=== PATIENT | female | born 1995 | race Caucasian/White ===

== ENCOUNTER 2017-11-17 19:05 | Emergency (ER) | payer SELFPAY ==
[~2017-11-17] VITALS: Ht 157.5 cm; Wt 53.1 kg
[2017-11-17 19:28] VITALS: BP 112/68
--- NOTE | 2017-11-17 19:31 | NUR ---
TO LOBBY A/W BED, KEELEY MOJICA NOTED
--- NOTE | 2017-11-17 22:04 | NUR ---
PT TAKEN TO BED 1
--- NOTE | 2017-11-17 22:04 | NUR ---
PT PRESENTS TO ED WITH STERNAL CHEST PAIN X1 DAY. PT STATES DULL CONTINUOUS PAIN WITH SOB. PT STATES N/V X1 HR. HR NSR AT 89, LUNGS CLEAR BILAT WITH O2SAT OF 100%RA. VSS. A&OX4. POSITIONED IN BED WITH VSS. ER MD AWARE. CONTINUE TO MONITOR.
[2017-11-17] MEDS ORDERED: FAMOTIDINE 20 MG TAB PO ONE (23:40)
[2017-11-17] MEDS ORDERED: ALUMINUM HYD/MAG/SIMETHICONE 30 ML, DICYCLOMINE HCL LIQUID 20 MG, LIDOCAINE VISCOUS 2% ... PO ONE ×3 (23:40)
[2017-11-17] MEDS ORDERED: ONDANSETRON 4 MG ODT PO ONE (23:40)
--- NOTE | 2017-11-18 00:06 | NUR ---
BLOOD SENT TO LAB.
[2017-11-18 00:14] LABS: BASOPHILS % (AUTO) 0.2 % (0.0-2.0); EOSINOPHILS % (AUTO) 0.1 % (0.0-4.0); HEMATOCRIT 32.7 % (36-48); HEMOGLOBIN 10.6 g/dL (12.0-16.0); LYMPHOCYTES # (AUTO) 0.5 K/uL (2.5-16.5); LYMPHOCYTES % (AUTO) 7.7 % (20.5-51.1); MEAN CORPUSCULAR HEMOGLOBIN 25 pg (27-31); MEAN CORPUSCULAR HGB CONC 32 g/dL (33-37); MONOCYTES # (AUTO) 0.3 K/uL (0.8-1.0); MONOCYTES % (AUTO) 4.3 % (1.7-9.3); NEUTROPHILS % (AUTO) 87.7 % (42.2-75.2); PLATELET COUNT (AUTO) 200 K/uL (140-450); RED BLOOD CELL COUNT(AUTO) 4.24 MIL/uL (4.20-5.40); RED CELL DISTRIBUTION WIDTH 16.4 % (11.6-13.7); WHITE BLOOD COUNT (AUTO) 6.9 K/uL (4.8-10.8)
[2017-11-18 00:15] LABS: APPEARANCE,URINE CLEAR (CLEAR); BILIRUBIN,URINE 2+ (NEGATIVE); BLOOD, URINE NEGATIVE (NEGATIVE); COLOR,URINE YELLOW (YELLOW); LEUKOCYTE ESTERASE ,URINE TRACE (NEGATIVE); NITRITE, URINE NEGATIVE (NEGATIVE); UGLUCOSE NEGATIVE (NEGATIVE)
[2017-11-18 00:17] LABS: ANION GAP 10.8 (8-16); CARBON DIOXIDE 24.2 mmol/L (21-32); CREATININE 0.3 mg/dL (0.6-1.3)
[2017-11-18 00:22] LABS: ALBUMIN 3.7 g/dL (3.4-5.0); TOTAL BILIRUBIN 1.3 mg/dL (0.0-1.0)
[2017-11-18 00:25] VITALS: BP 101/61
[2017-11-18 00:25] LABS: RBC,URINE 0-5 (RARE) /HPF (0-5); WBC,URINE 0-5 (RARE) /HPF (0-5)
--- NOTE | 2017-11-18 00:25 | NUR ---
Patient discharged with v/s stable with no pain 0/10. Written and verbal after care instructions given and explained. Patient alert, oriented and verbalized understanding of instructions. Ambulatory with steady gait. All questions addressed prior to discharge. ID band removed. Patient advised to follow up with PMD. Rx of Equiline Ferrous Sulfate, Reglan, Pepcid, and Tramadol given. Patient educated on indication of medication including possible reaction and side effects. Opportunity to ask questions provided and answered.
== END 2017-11-18 00:25 | disposition home or self-care (01) ==
LOC: MED 19:05
DX: K52.9 Noninfective gastroenteritis and colitis, unspecified (principal); D50.9 Iron deficiency anemia, unspecified
CPT/HCPCS: 36415; 80053; 81001; 83540; 83690; 85025; 99284; S0119

== ENCOUNTER 2018-09-26 03:11 | Emergency (ER) | payer MEDICAID ==
[~2018-09-26] VITALS: Ht 157.5 cm; Wt 54.4 kg
[2018-09-26 03:34] VITALS: BP 102/63
--- NOTE | 2018-09-26 03:34 | NUR ---
TO BED # 08 AMBULATORY. CAME IN WITH C/O EPIGASTRIC PAIN WITH NAUSEA , VOMITING, HEADACHE FOR 3 DAYS.
--- NOTE | 2018-09-26 03:59 | NUR ---
SEEN AND EXAMINED BY ASIF WITH ORDERS AND CARRIED OUT.
[2018-09-26 04:28] LABS: APPEARANCE,URINE CLOUDY (CLEAR); BILIRUBIN,URINE 1+ (NEGATIVE); BLOOD, URINE 3+ (NEGATIVE); COLOR,URINE YELLOW (YELLOW); LEUKOCYTE ESTERASE ,URINE NEGATIVE (NEGATIVE); NITRITE, URINE NEGATIVE (NEGATIVE); PH,URINE 5.5 (5.0-9.0); UGLUCOSE NEGATIVE (NEGATIVE)
--- NOTE | 2018-09-26 04:30 | NUR ---
Dr. Sorensen examining patient.
[2018-09-26] MEDS ORDERED: LIDOCAINE VISCOUS 2% 20 ML UDC PO ONE (04:40)
[2018-09-26] MEDS ORDERED: DICYCLOMINE 20 MG/2 ML VIAL IM ONE (04:40)
[2018-09-26] MEDS ORDERED: FAMOTIDINE 20 MG/2 ML VIAL IVP ONE (04:40)
[2018-09-26] MEDS ORDERED: ALUMINUM HYD/MAG/SIMETHICONE 30 ML UDC PO ONE (04:40)
[2018-09-26 04:46] LABS: RBC,URINE TOO NUMEROUS TO COUN /HPF (0-5)
[2018-09-26 04:48] LABS: CALCIUM OXALATE CRYSTALS,UR 0-10 /HPF (None Seen)
[2018-09-26 04:51] LABS: BASOPHILS # (AUTO) 0.1 K/uL (0.00-0.22); BASOPHILS % (AUTO) 0.6 % (0.0-2.0); EOSINOPHILS # (AUTO) 0.1 K/uL (0-0.4); EOSINOPHILS % (AUTO) 1.1 % (0.0-4.0); HEMATOCRIT 28.9 % (36-48); HEMOGLOBIN 9.4 g/dL (12.0-16.0); LYMPHOCYTES # (AUTO) 1.1 K/uL (2.5-16.5); LYMPHOCYTES % (AUTO) 10.8 % (20.5-51.1); MEAN CORPUSCULAR HEMOGLOBIN 24 pg (27-31); MEAN CORPUSCULAR HGB CONC 32 g/dL (33-37); MEAN CORPUSCULAR VOLUME 75.2 fL (80-94); MONOCYTES # (AUTO) 0.5 K/uL (0.8-1.0); MONOCYTES % (AUTO) 5.1 % (1.7-9.3); NEUTROPHILS # (AUTO) 8.1 K/uL (1.8-7.7); NEUTROPHILS % (AUTO) 82.4 % (42.2-75.2); PLATELET COUNT (AUTO) 240 K/uL (140-450); RED BLOOD CELL COUNT(AUTO) 3.85 MIL/uL (4.20-5.40); RED CELL DISTRIBUTION WIDTH 15.5 % (11.6-13.7); WHITE BLOOD COUNT (AUTO) 9.9 K/uL (4.8-10.8)
[2018-09-26 05:05] LABS: ANION GAP 14.1 (8-16); CARBON DIOXIDE 25.5 mmol/L (21-32); CREATININE 0.6 mg/dL (0.6-1.3); POTASSIUM 3.6 mmol/L (3.5-5.1)
[2018-09-26 05:12] LABS: ALBUMIN 3.9 g/dL (3.4-5.0); TOTAL BILIRUBIN 0.6 mg/dL (0.0-1.0)
--- NOTE | 2018-09-26 06:36 | NUR ---
Ultrasound at bedside.
--- NOTE | 2018-09-26 07:00 | NUR ---
STILL A/W FOR RESULTS FOR DISPOSITION.
--- NOTE | 2018-09-26 07:24 | NUR ---
REPORT GIVEN TO MONA JOHNSON CHARGE
[2018-09-26 09:21] VITALS: BP 102/63
--- NOTE | 2018-09-26 09:21 | NUR ---
IV removed, catheter intact and site benign. Applied folded 4x4 gauze and tape to stop bleeding.
--- NOTE | 2018-09-26 09:22 | NUR ---
Patient discharged with v/s stable. Written and verbal after care instructions given and explained. Patient alert, oriented and verbalized understanding of instructions. Ambulatory with steady gait. All questions addressed prior to discharge. ID band removed. Patient advised to follow up with PMD. Rx of Motrin, [place] and zofran given. Patient educated on indication of medication including possible reaction and side effects. Opportunity to ask questions provided and answered.
== END 2018-09-26 09:22 | disposition home or self-care (01) ==
LOC: MED 03:11
DX: K80.80 Other cholelithiasis without obstruction (principal)
CPT/HCPCS: 36415; 76705; 80053; 81001; 81025; 83690; 85025; 87086; 87186; 96372; 96374; 99284; J0500; J3490; Q0092

== ENCOUNTER 2019-08-28 20:59 | Emergency (ER) | payer MEDICAID ==
[~2019-08-28] VITALS: Ht 157.5 cm; Wt 59.9 kg
[2019-08-28 21:26] VITALS: BP 97/60
--- NOTE | 2019-08-28 21:34 | NUR ---
PT TAKEN TO BED 11
--- NOTE | 2019-08-28 21:59 | NUR ---
24F PRESENTS TO ED WITH C/O RUQ, LUQ ABDOMINAL 10/23 THAT IS RADIATING TO LOWER BACK THAT STARTED X 3 DAYS. PT REPORTS THEY WERE SEEN HERE IN [facility] X2 MONTHS FOR THE SAME THING. ABDOMEN SOFT AND NONTENDER. BOWEL SOUNDS NORMOACTIVE. DENIES VOMITING OR DIARRHEA BUT + FOR NAUSEA. ERMD MADE AWARE. PMHX: DENIES RX: DENIES NKA
--- NOTE | 2019-08-28 22:15 | NUR ---
Dr. Rodriguez examining patient.
--- NOTE | 2019-08-28 22:17 | NUR ---
ASIF PIPER AT BEDSIDE.
[2019-08-28] MEDS ORDERED: ONDANSETRON 4 MG ODT PO ONE (22:20)
[2019-08-28] MEDS ORDERED: KETOROLAC 60 MG/2 ML VIAL IM ONE (22:20)
[2019-08-28 23:09] VITALS: BP 97/60
--- NOTE | 2019-08-28 23:09 | NUR ---
Patient discharged with v/s stable. Written and verbal after care instructions given and explained. Patient alert, oriented and verbalized understanding of instructions. Ambulatory with steady gait. All questions addressed prior to discharge. ID band removed. Patient advised to follow up with PMD. Rx of ZOFRAN, MOTRIN, NORCO given. Patient educated on indication of medication including possible reaction and side effects. Opportunity to ask questions provided and answered.
== END 2019-08-28 23:09 | disposition home or self-care (01) ==
LOC: MED 20:59
DX: R10.13 Epigastric pain (principal); R11.0 Nausea; R68.83 Chills (without fever)
CPT/HCPCS: 81002; 81025; 96372; 99283; J1885; Q0162

== ENCOUNTER 2020-08-16 12:58 | Emergency (ER) | payer MEDICAID ==
[~2020-08-16] VITALS: Ht 157.5 cm; Wt 59.0 kg
[2020-08-16 13:02] VITALS: BP 116/72
--- NOTE | 2020-08-16 13:15 | NUR ---
XRAY AT BEDSIDE
--- NOTE | 2020-08-16 13:23 | NUR ---
25 Y/O FEMALE BIB SELF S/O LEFT SIDED CHEST PAIN RADIATING TO LEFT ARM, STARTED THIS MORNING, PAIN IS SHARP 09/22. PAIN WORSENS DURING BREATHING. VSS. CAP REFILL <3. DENIES ANY DIZZINESS AT THIS TIME. DENIES ANY COUGH OR SOB.
[2020-08-16] MEDS ORDERED: KETOROLAC 30 MG/ML VIAL IM ONE (13:35)
[2020-08-16] MEDS ORDERED: CYCL-711 PO (14:14)
[2020-08-16] MEDS ORDERED: IBUP-2213 PO (14:14)
[2020-08-16 14:25] VITALS: BP 116/72
--- NOTE | 2020-08-16 14:25 | NUR ---
Patient discharged with v/s stable. Written and verbal after care instructions given and explained. Patient alert, oriented and verbalized understanding of instructions. Ambulatory with steady gait. All questions addressed prior to discharge. ID band removed. Patient advised to follow up with PMD. Rx of FLEXIRIL, MOTRIN given. Patient educated on indication of medication including possible reaction and side effects. Opportunity to ask questions provided and answered.
== END 2020-08-16 14:25 | disposition home or self-care (01) ==
LOC: MED 12:58
DX: R07.2 Precordial pain (principal); M54.10 Radiculopathy, site unspecified; M25.512 Pain in left shoulder; Z79.899 Other long term (current) drug therapy
CPT/HCPCS: 71045; 81002; 81025; 93005; 96372; 99283; J1885